=== PATIENT | female | born 1960 | race Caucasian/White ===

== ENCOUNTER 2022-12-03 16:37 | Emergency (ER) | payer BC, SELFPAY ==
[2022-12-03 16:42] VITALS: BP 103/66; PULSE 76; RESP 16; TEMP 37.1; O2SAT 100; BMI 23.0
--- NOTE | 2022-12-03 17:10 | ED.GENADULT ---
HPI - General Adult General Date Seen: 12/03/22 Chief complaint: Animal Bite Stated complaint: Tick Bite Time Seen by Provider: 12/03/22 16:43 Source: patient Mode of arrival: ambulatory Limitations: no limitations History of Present Illness HPI narrative: Patient is a 62-year-old female who found a common wood tick imbedded in her right flank two days ago. She was able to remove the tick but was not 100% certain that she got all parts. Today she noticed some redness around the tick bite. She also has some redness where the Band-Aid was touching her. She has had no fevers or chills. No purulent drainage. She is fairly certain that this was a dog tick and not a deer tick. She has no chronic health problems other than some anxiety with that she takes low-dose sertraline for. No medication allergies. She called the clinic and was referred to the emergency department. Related Data Previous Rx's Medication Instructions Recorded cephalexin 500 mg capsule 500 mg PO TID 7 days #21 caps 12/03/22 Allergies Allergy/AdvReac Type Severity Reaction Status Date / Time No Known Drug Allergies Allergy Verified 12/03/22 16:45 Review of Systems Narrative: Review of systems is outlined above otherwise noted to be negative. PFSH PFSH Social History Do you use any of these nicotine containing products: None Exam Narrative: Exam Narrative: Vitals noted. Lungs: Clear to auscultation in all mcdonald. No wheezes, rales, rhonchi. Heart: Regular rate and rhythm without murmur. Abdomen: Soft and nontender. No guarding, rigidity, rebound. Bowel sounds are normal. No palpable masses. Extremities: No cyanosis or edema. Good distal pulses. Skin: She has a tiny punctate area where the tick was. I do not see any sign of retained portion of the tick. There is a small surrounding erythema. No purulent drainage. No lymphangitic streaking. Const: Vital Signs, click to edit/add: Vital Signs - 24 hr 12/03/22 16:42 Temperature 98.7 F Pulse Rate [Right Pulse Oximeter] 76 Respiratory Rate 16 Blood Pressure [Ri ght Upper Arm] 103/66 Pulse Oximetry 100 Oxygen Delivery Me thod Room Air Course Vital Signs Vital signs: Initial Vital Signs Temperature 98.7 F 12/03/22 16:42 Temperature Source Temporal Artery Scan 12/03/22 16:42 Pulse Rate 76 12/03/22 16:42 Pulse Rhythm Regular 12/03/22 16:42 Pulse Strength 3+ Normal 12/03/22 16:42 Respiratory Rate 16 12/03/22 16:42 Blood Pressure 103/66 12/03/22 16:42 Blood Pressure Mean 78 12/03/22 16:42 Blood Pressure Position Sitting 12/03/22 16:42 Pulse Oximetry 100 12/03/22 16:42 Oxygen Delivery Method Room Air 12/03/22 16:42 Vital Signs Temperature 98.7 F 12/03/22 16:42 Pulse Rate 76 12/03/22 16:42 Respiratory Rate 16 12/03/22 16:42 Blood Pressure 103/66 12/03/22 16:42 Pulse Oximetry 100 12/03/22 16:42 Oxygen Delivery Method Room Air 12/03/22 16:42 Temperature 98.7 F 12/03/22 16:42 Pulse Rate 76 12/03/22 16:42 Respiratory Rate 16 12/03/22 16:42 Blood Pressure 103/66 12/03/22 16:42 Pulse Oximetry 100 12/03/22 16:42 Oxygen Delivery Method Room Air 12/03/22 16:42 Medical Decision Making MDM Narrative Medical decision making narrative: Patient is reassured that this is not a sign of Lyme and that dog ticks to not carry any significant diseases for humans. I suspect there is a low-grade infection related to staph and strep on the skin. I did give her short course of Keflex to cover for that. Discharge Plan Discharge Clinical Impression: Tick bite of abdomen Qualifiers: Encounter type: initial encounter Qualified Code(s): S30.861A - Insect bite (nonvenomous) of abdominal wall, initial encounter Patient Disposition: Home, Self-Care Condition: Stable Additional Instructions: Hot pack, Keflex x 7 days. Follow up in the clinic if not improving over the next week. Prescriptions: New cephalexin 500 mg capsule 500 mg PO TID 7 Days Qty: 21 0RF Follow Up/Referrals: Elle Landeros DO [Primary Care Provider] - Stand Alone Forms: MyHealth Info Instructions
== END 2022-12-03 17:17 | disposition home or self-care (01) ==
PROVIDERS: Emergency Provider Family Medicine; PCP Family Medicine
DX: S30.861A Insect bite (nonvenomous) of abdominal wall, initial encounter (principal)
CPT/HCPCS: 99282; 99283